=== PATIENT | male | born 1980 | race Caucasian/White ===

== ENCOUNTER → 2023-12-26 15:49 | Outpatient (REF) | payer BC, SELFPAY | LOC: DHCBS MAIN 15:49 | PROVIDERS: ATTENDING PHYSICIAN Internal Medicine Cardiovascular Disease; FAMILY PHYSICIAN Physician Assistant Medical | DX: I49.8 Other specified cardiac arrhythmias (principal); R00.2 Palpitations; I49.3 Ventricular premature depolarization; Z82.49 Family history of ischemic heart disease and other diseases of the circulatory system | CPT/HCPCS: 93306 ==

== ENCOUNTER 2025-03-20 06:19 | Day surgery (SDC) | payer BC, SELFPAY | END 2025-03-20 15:01 | disposition home or self-care (01) | LOC: GI 06:19 | PROVIDERS: ATTENDING PHYSICIAN Specialist | DX: R19.4 Change in bowel habit (principal); K64.8 Other hemorrhoids | CPT/HCPCS: 45380; 88305 ==